=== PATIENT | male | born 1950 | race Caucasian/White ===

== ENCOUNTER 2018-08-10 06:19 | Emergency (ER) | payer SELFPAY ==
[~2018-08-10] VITALS: Ht 188 cm; Wt 65.5 kg
--- NOTE | 2018-08-10 06:49 | NUR ---
PT TO ROOM WITH INTENSE FEELING THAT HE IS RETAINING URINE, PT REQUSETED IN AND OUT CATH, CATHED FOR 600 ML
[2018-08-10 06:59] LABS: BASOPHILS # (AUTO) 0.03 x10^3/uL (0-0.1); BASOPHILS % (AUTO) 1 % (0-1); EOSINOPHILS # (AUTO) 0.41 x10^3/uL (0-0.4); EOSINOPHILS % (AUTO) 7 % (1-7); LYMPHOCYTES # (AUTO) 1.39 x10^3/uL (1-3.4); LYMPHOCYTES % (AUTO) 23 % (22-44); MD NO; MEAN CORPUSCULAR HEMOGLOBIN 32.6 pg (27.5-34.5); MEAN CORPUSCULAR HGB CONC 34.2 g/dL (33.2-36.2); MEAN CORPUSCULAR VOLUME 95.3 fL (81-97); MEAN PLATELET VOLUME 8.6 fL (7.4-10.4); MONOCYTES # (AUTO) 0.54 x10^3/uL (0.2-0.8); MONOCYTES % (AUTO) 9 % (2-9); NEUTROPHILS # (AUTO) 3.57 x10^3/uL (1.8-6.8); NEUTROPHILS % (AUTO) 60 % (42-75); PLATELET COUNT 243 x10^3/uL (130-400); RED BLOOD COUNT 4.62 x10^6/uL (4.38-5.82); RED CELL DISTRIBUTION WIDTH 12.8 % (9.4-14.8)
[2018-08-10 07:11] VITALS: BP 104/63
--- NOTE | 2018-08-10 07:12 | NUR ---
Recieved report from DAE Newell. All questions answered. Assuming care of this pt at this time. First contact with pt. Pt laying on gurney connected to NIBP and continous pulse ox. NADN. Pt denies pain at this time. Pt states, "I had urinary retention about two months ago, it seems to happen when I drink. I am feeling better now since she straight cathed me." Pt has call light within reach. All safety measures in place. No needs expressed at this time.
[2018-08-10 07:13] LABS: ALBUMIN 3.8 g/dL (3.4-5.0); ANION GAP 5 mmol/L (5-15); CALCIUM 8.7 mg/dL (8.5-10.1); CHLORIDE 107 mmol/L (98-107); CREATININE 0.88 mg/dL (0.7-1.3)
[2018-08-10 07:20] LABS: MICROSCOPIC AUTO
[2018-08-10 07:21] LABS: CULTURE INDICATED? NO
--- NOTE | 2018-08-10 07:59 | NUR ---
Pt ambulates to restroom with steady gait and balane. Pt ambulates back to room. Pt able to urinate on his own at this time.
--- NOTE | 2018-08-10 08:14 | NUR ---
Patient given discharge instructions and they have confirmed that they understand the instructions. Patient ambulatory with steady gait. Pt left with all personal belongings, discharge paperwork, and prescription.
== END 2018-08-10 08:48 | disposition home or self-care (01) ==
LOC: ED 08:18
DX: N40.1 Benign prostatic hyperplasia with lower urinary tract symptoms (principal); R33.8 Other retention of urine
CPT/HCPCS: 36415; 80048; 81001; 82040; 85025; 99283

== ENCOUNTER 2018-09-09 02:54 | Emergency (ER) | payer MEDICARE, OTHER ==
[~2018-09-09] VITALS: Ht 185.4 cm; Wt 63.0 kg
[2018-09-09 02:57] VITALS: BP 138/93
--- NOTE | 2018-09-09 03:23 | NUR ---
PT STATES HE WOULD ONLY LIKE TO GET A STRAIGHT CATH AND NO FURTHER TESTING. EDUCATED BY PROVIDER AND THIS RN. PT STILL REFUSING. PT SIGNED AMA AND PLACED ON CHART.
== END 2018-09-09 03:32 | disposition left against medical advice (07) ==
LOC: ED 03:26
DX: N40.1 Benign prostatic hyperplasia with lower urinary tract symptoms (principal); R33.8 Other retention of urine
CPT/HCPCS: 51701; 99281; 99283; 99284; P9612

== ENCOUNTER 2019-02-06 09:50 | Emergency (ER) | payer SELFPAY ==
[~2019-02-06] VITALS: Ht 188 cm; Wt 66.8 kg
--- NOTE | 2019-02-06 10:06 | NUR ---
TO ROOM FROM LOBBY. NAD.
--- NOTE | 2019-02-06 10:15 | NUR ---
PT TO ED FOR URINARY RETENTION STARTING LAST NIGHT AFTER DRINKING ALCOHOL. PT CONNECTED TO MONITORS. VSS. EDMD PRESENT FOR ASSESSMENT WITH US. PLAN TO CATHETERIZE AND ADMIN FLOMAX. WILL SEND UA AFTER CATHETER. AWAITING ORDERS.
--- NOTE | 2019-02-06 10:37 | NUR ---
straight cath completed [facility] sterile technique per pt request. approx 850mL drained from bladder. ua collected and sent. vss. pt tolerated well. awaiting resutls.
[2019-02-06 11:05] VITALS: BP 105/67
[2019-02-06 11:07] LABS: MICROSCOPIC AUTO
[2019-02-06 11:09] LABS: CULTURE INDICATED? NO
--- NOTE | 2019-02-06 11:19 | NUR ---
PT RESTING IN BED. NO NEEDS EXPRESSED. CALL LIGHT WITHIN REACH. PT REPORTS RELIEF AND LESS BLADDER PAIN. AWAITING FURTHER ORDERS.
--- NOTE | 2019-02-06 11:57 | NUR ---
Patient/Caregiver given discharge instructions and they have confirmed that they understand the instructions. Patient ambulatory with steady gait.
[2019-02-06] MEDS ORDERED: TAMSULOSIN 0.4 MG CAP.ER.24H PO ONE (12:00)
== END 2019-02-06 11:58 | disposition home or self-care (01) ==
LOC: ED 11:01
DX: N40.1 Benign prostatic hyperplasia with lower urinary tract symptoms (principal); R33.8 Other retention of urine
CPT/HCPCS: 81001; 99284

== ENCOUNTER 2019-09-22 06:58 | Emergency (ER) | payer SELFPAY ==
[~2019-09-22] VITALS: Ht 188 cm; Wt 66.7 kg
[2019-09-22 07:00] VITALS: BP 125/81
--- NOTE | 2019-09-22 07:44 | NUR ---
INSERTED TURNER CATHETER, STERILE TECHNIQUE OBSERVED BY SECONDARY RN. ERMD IN TO EVAL PT, PT DOES NOT WISH AT THIS TIME TO KEEP TURNER CATHETER DESPITE URINARY RETENTION. WILL RE-EVAL
[2019-09-22 08:03] LABS: BASOPHILS # (AUTO) 0.04 x10^3/uL (0-0.1); BASOPHILS % (AUTO) 1 % (0-1); EOSINOPHILS # (AUTO) 0.03 x10^3/uL (0-0.4); EOSINOPHILS % (AUTO) 0 % (1-7); LYMPHOCYTES # (AUTO) 0.79 x10^3/uL (1-3.4); LYMPHOCYTES % (AUTO) 11 % (22-44); MD NO; MEAN CORPUSCULAR HEMOGLOBIN 31.1 pg (27.5-34.5); MEAN CORPUSCULAR HGB CONC 33.5 g/dL (33.2-36.2); MEAN CORPUSCULAR VOLUME 92.7 fL (81-97); MEAN PLATELET VOLUME 8.6 fL (7.4-10.4); MONOCYTES # (AUTO) 0.28 x10^3/uL (0.2-0.8); MONOCYTES % (AUTO) 4 % (2-9); NEUTROPHILS # (AUTO) 5.82 x10^3/uL (1.8-6.8); NEUTROPHILS % (AUTO) 84 % (42-75); PLATELET COUNT 291 x10^3/uL (130-400); RED BLOOD COUNT 4.69 x10^6/uL (4.38-5.82)
[2019-09-22 08:11] LABS: MICROSCOPIC NOT IND
[2019-09-22 08:12] LABS: ALBUMIN 3.5 g/dL (3.4-5.0); ANION GAP 10 mmol/L (5-15); CALCIUM 8.1 mg/dL (8.5-10.1); CHLORIDE 105 mmol/L (98-107); CREATININE 0.89 mg/dL (0.7-1.3)
[2019-09-22 08:27] LABS: CULTURE INDICATED? NO
--- NOTE | 2019-09-22 09:08 | NUR ---
MULTIPLE ATTEMPTS TO EDUCATE PT ON IMPORTANCE OF KEEPING TURNER ON DC D/T RETENTION, PT INSISTS ON HAVING IT REMOVED, PT STATES "I DONT HAVE FUNDS" PT BELIEVES HE RETAINS URINE ONLY WHEN DRINKING CASINO BEER, PT STATES HE WILL NOT DO THIS ANYMORE.
== END 2019-09-22 09:11 | disposition home or self-care (01) ==
LOC: ED 09:06
DX: N40.1 Benign prostatic hyperplasia with lower urinary tract symptoms (principal); R33.8 Other retention of urine
CPT/HCPCS: 36415; 80048; 81003; 82040; 85025; 99283

== ENCOUNTER 2020-01-22 22:25 | Emergency (ER) | payer MEDICARE, OTHER ==
[~2020-01-22] VITALS: Ht 188 cm; Wt 68.2 kg
--- NOTE | 2020-01-22 23:00 | NUR ---
TURNER PLACED PER ORDER. PT TOLERATED WELL.
[2020-01-22 23:41] VITALS: BP 104/66
[2020-01-22 23:50] LABS: MICROSCOPIC INDICATED
--- NOTE | 2020-01-23 00:13 | NUR ---
TURNER REMOVED PER PT REQUEST, PT REFUSES TO KEEP TURNER OR FOLLOW UP REFERRAL, PT STATES HE WILL TAKE CARE OF HIMSELFT AT HOME AND NOT DRINK ALCOHOL AT THE [place], PT REPORTS HE BELIEVES DRINKING ALCOHOL AT THE [place] CAUSED HIS URINARY RETENTION.
== END 2020-01-23 00:21 | disposition home or self-care (01) ==
LOC: ED 01-23 00:01
DX: R33.8 Other retention of urine (principal)
CPT/HCPCS: 51702; 81001; 99284

== ENCOUNTER 2020-10-11 09:19 | Emergency (ER) | payer SELFPAY ==
[~2020-10-11] VITALS: Ht 188 cm; Wt 67.3 kg
--- NOTE | 2020-10-11 09:46 | NUR ---
Unable to void since midnight (9.5 hours). Hx of same that resolved with straight cath and rx bladder scan of 77. Patient adamant on not keeping alegria in place. erp agreeable
--- NOTE | 2020-10-11 09:52 | NUR ---
BLADDER SCAN OF 770. PER PROVIDER STRAIGHT CATH TO DRAIN. PT TOLERATED PROCEDURE WELL. UA WILL BE SENT TO RULE OUT UTI.
[2020-10-11 10:33] LABS: BASOPHILS % (AUTO) 1 % (0-1); EOSINOPHILS % (AUTO) 0 % (1-7); LYMPHOCYTES % (AUTO) 10 % (22-44); MEAN CORPUSCULAR HEMOGLOBIN 32.9 pg (27.5-34.5); MEAN CORPUSCULAR HGB CONC 34.5 g/dL (33.2-36.2); MEAN PLATELET VOLUME 9.1 fL (7.4-10.4); MONOCYTES % (AUTO) 6 % (2-9); NEUTROPHILS % (AUTO) 83 % (42-75); PLATELET COUNT 262 x10^3/uL (130-400); RED BLOOD COUNT 4.47 x10^6/uL (4.38-5.82); RED CELL DISTRIBUTION WIDTH 13.2 % (9.4-14.8)
[2020-10-11 10:35] LABS: MD NO
[2020-10-11 10:39] LABS: MICROSCOPIC INDICATED
[2020-10-11 10:45] LABS: ALANINE AMINOTRANSFERASE 15 U/L (12-78); ALBUMIN 3.6 g/dL (3.4-5.0); ANION GAP 9 mmol/L (5-15); CALCIUM 8.4 mg/dL (8.5-10.1); CHLORIDE 104 mmol/L (98-107)
[2020-10-11 10:47] LABS: ALKALINE PHOSPHATASE 79 U/L (45-117); BILIRUBIN,TOTAL 0.6 mg/dL (0.2-1.0); TOTAL PROTEIN 6.9 g/dL (6.4-8.2)
[2020-10-11 10:49] VITALS: BP 99/50
--- NOTE | 2020-10-11 10:49 | NUR ---
BRIGHT RED BLOOD WITH CLOTS OBSERVED IN DRAIN TUBE FOR TURNER. PROVIDER MADE AWARE.
--- NOTE | 2020-10-11 11:14 | NUR ---
IRRIGATION OF 1 LITER OF STERILE WATER COMPLETE.
--- NOTE | 2020-10-11 12:01 | NUR ---
PT WISHES TO HAVE JOHNNY LLOYD. PROVIDER AWARE.
== END 2020-10-11 12:03 | disposition home or self-care (01) ==
LOC: ED 10:39
DX: N40.1 Benign prostatic hyperplasia with lower urinary tract symptoms (principal); R33.8 Other retention of urine; R31.0 Gross hematuria
CPT/HCPCS: 36415; 51702; 80053; 81001; 85025; 99284

== ENCOUNTER 2021-01-15 05:48 | Emergency (ER) | payer MEDICARE ==
[~2021-01-15] VITALS: Ht 188 cm; Wt 67.5 kg
--- NOTE | 2021-01-15 06:12 | NUR ---
pt c/o of not being able to urinate since midnight last night. states it always happens when he drinks. reports drinking 3 glasses of wine and 2 beers. pt attached to monitors. vss. nadn. breathing even and unlabored. bladder distention noted. pt is refusing a alegria catheter and requesting a straight catheter that stays out. recommends pt to seeing a urologist but pt appears reluctant. bed in low position, rails engaged, call light on lap. wctm
--- NOTE | 2021-01-15 07:00 | NUR ---
INSERTED TURNER CATHTER PER HOSPITAL POLICY. PT URINE CLEAR AND YELLOW. OUTPUT 1050ML A LOT OF RESISTANCE FROM POSSIBLE ENLARGED PROSTATE. PT REFUSING TO KEEP TURNER IN AFTER DC. BEDSIDE REPORT GIVEN TO JESUS. TRANSFER OF CARE. UA SENT TO LAB
--- NOTE | 2021-01-15 07:01 | NUR ---
RECEIVED REPORT FROM RO PEARL TO ASSUME CARE.
[2021-01-15 07:15] LABS: MICROSCOPIC AUTO
[2021-01-15 08:04] VITALS: BP 108/59
--- NOTE | 2021-01-15 08:28 | NUR ---
TURNER REMOVED NO ISSUES. Patient/Caregiver given discharge instructions and they have confirmed that they understand the instructions. Patient ambulatory with steady gait.
== END 2021-01-15 08:30 | disposition home or self-care (01) ==
LOC: ED 06:54
DX: N40.1 Benign prostatic hyperplasia with lower urinary tract symptoms (principal); R33.8 Other retention of urine
CPT/HCPCS: 51702; 81001; 99284